=== PATIENT | female | born 1950 | race Hispanic/Latino ===

== ENCOUNTER → 2023-08-13 | Outpatient (CLI) | payer OTHER | END | disposition home or self-care (01) | LOC: RAH 13:37 | PROVIDERS: ATTEND Internal Medicine Medical Oncology | DX: I34.81 Nonrheumatic mitral (valve) annulus calcification (principal); Z79.899 Other long term (current) drug therapy | CPT/HCPCS: 93306 ==

== ENCOUNTER → 2023-11-11 | Outpatient (CLI) | payer OTHER | END | disposition home or self-care (01) | LOC: RAH 14:35 | PROVIDERS: ATTEND Family Medicine | DX: I34.81 Nonrheumatic mitral (valve) annulus calcification (principal); I51.7 Cardiomegaly; I51.89 Other ill-defined heart diseases; R55 Syncope and collapse | CPT/HCPCS: 93306 ==

== ENCOUNTER → 2024-05-01 | Outpatient (CLI) | payer OTHER ==
--- NOTE | 2024-05-01 21:17 | HMCSR ---
APPROVED REPORT EXAM: Two-dimensional and M-mode echocardiogram with Doppler and color Doppler. INDICATION ICD: Z79.899, C50.11 2D Dimensions RVDd3.1 cmLVEF(%)59.8 (>50%)LVED Vol(simp.)103.0 mL IVSd0.9 (0.7-1.1cm)FS(%)32 %LVES Vol(simp.)47.6 mL LVDd4.7 (3.8-5.6cm)LA (2D)4.1 (1.6-4.0cm)LVEF(%, simp.)54 % PWd1.2 (0.7-1.1cm)Ao Root(2D)3.6 (2.0-3.7cm)LA ESV INDEX (4CH)38.40 mL/m2 IVSs1.4 cmLVOT diam2.2 (1.8-2.4cm)LA ESV INDEX (2CH)38.90 mL/m2 LVDs3.2 (2.5-4.0cm)LA ESV INDEX (BP)39.10 mL/m2 PWs1.7 cm M-Mode Dimensions EPSS0.4 cm LA (MM)5.0 (1.6-4.0cm) Ao Root(MM)3.5 (2.0-3.7cm) Aortic Valve AoV VTI0.2 mAo Mean GR3.0 mmHgLVOT VTI0.21 m SRIRAM (VMAX)3.3 cm2AVA (VTI) 3.3 cm2 Mitral Valve MV E Vmax83.4 cm/sDECEL Nere051 ms MV A Vmax82.0 cm/sP 1/2 T85 ms E/A ratio1.0MVA (PHT)2.6 cm2 TDI E/E' Cdmdam25.2E/E' Hlmxqiz67.1 Medial E' Peak V3.60 cm/sLateral E' Peak V4.60 cm/s Pulmonary Valve PV VTI0.20 mPV Mean GR2 mmHg Tricuspid Valve TR Vmax1.9 m/sRAP (EST) 8 yeZaQTUR28.4 mmHg TR Peak GR14.4 mmHg Left Ventricle The left ventricle is normal size. There is normal left ventricular wall thickness. The LVEF is 55-60 %. Stage II, diastolic dysfunction. Right Ventricle The right ventricle is normal size. The right ventricular systolic function is normal. Atria The left atrium is mildly dilated. The right atrium size is normal. Aortic Valve The aortic valve is normal in structure. No aortic regurgitation is present. There is no aortic valvu lar stenosis. Mitral Valve Mild posterior annular calcification. Mitral valve leaflets open well. There is no evidence of signif icant mitral regurgitation. There is no mitral valve stenosis. Tricuspid Valve The tricuspid valve is normal in structure. There is trace of tricuspid valve regurgitation noted. Pulmonic Valve The pulmonary valve is normal in structure. There is no pulmonic valvular regurgitation. Great Vessels The aortic root is normal in size. IVC is not well visualized. Pericardium There is no pericardial effusion. Other Information Quality : Adequate Conclusion The left ventricle is normal size. The LVEF is 55-60%. Stage II, diastolic dysfunction. The right ventricle is normal size. The right ventricular systolic function is normal. The left atrium is mildly dilated. The right atrium size is normal. No valvular pathology. There is no pericardial effusion.
== END | disposition home or self-care (01) ==
LOC: RAH 12:48
PROVIDERS: ATTEND Internal Medicine Medical Oncology
DX: Z51.11 Encounter for antineoplastic chemotherapy (principal); C50.011 Malignant neoplasm of nipple and areola, right female breast; Z79.899 Other long term (current) drug therapy
CPT/HCPCS: 93306

== ENCOUNTER → 2024-08-07 | Outpatient (CLI) | payer OTHER ==
--- NOTE | 2024-08-07 14:25 | HMCSR ---
APPROVED REPORT EXAM: Two-dimensional and M-mode echocardiogram with Doppler and color Doppler. INDICATION ICD: Z79.899 Other intermediate project manager (current) drug therapy 2D Dimensions RVDd3.4 cmLVEF(%)82.1 (>50%)LVED Vol(simp.)131.0 mL IVSd1.1 (0.7-1.1cm)FS(%)51 %LVES Vol(simp.)50.0 mL LVDd4.7 (3.8-5.6cm)LA (2D)4.7 (1.6-4.0cm)LVEF(%, simp.)62 % PWd1.3 (0.7-1.1cm)Ao Root(2D)3.3 (2.0-3.7cm)LA ESV INDEX (BP)61.36 mL/m2 LVDs2.3 (2.5-4.0cm)LVOT diam2.1 (1.8-2.4cm) IVC diam1.8 cm Deformation Strain Apical 4-18.8 % Apical 2-19.1 % Apical 3-15.7 % Global Strain-17.9 % M-Mode Dimensions EPSS0.4 cm LA (MM)4.9 (1.6-4.0cm) Ao Root(MM)3.5 (2.0-3.7cm) Aortic Valve AoV Vmax1.5 m/Yuly Peak GR8.4 mmHgLVOT Vmax1.1 m/s AoV VTI0.3 mAo Mean GR4.3 mmHgLVOT VTI0.28 m SRIRAM (VMAX)3.02 cm2AVA (VTI) 3.0 cm2 Mitral Valve MV E Npte561.3 cm/sDECEL Rpoe003 ms MV A Aznv806.1 cm/sP 1/2 T65 ms E/A ratio1.1MVA (PHT)3.4 cm2 TDI E/E' Nmbyab53.3E/E' Zmgssvv87.0 Medial E' Peak V5.29 cm/sLateral E' Peak V6.48 cm/s Tricuspid Valve TR Vmax2.4 m/sRVSP22.7 mmHg TR Peak GR22.7 mmHg Left Ventricle The left ventricle is normal size. Global strain of -18%. There is normal left ventricular wall thick ness. LVEF is 60-65%. Stage II diastolic dysfunction. Right Ventricle The right ventricle is normal size. The right ventricular systolic function is normal. Atria The left atrium is severely dilated. The right atrium size is normal. Aortic Valve The aortic valve is normal in structure. No aortic regurgitation is present. There is no aortic valvu lar stenosis. Mitral Valve The mitral valve is normal in structure. Mild mitral annular calcification present. Mitral regurgitat ion is trace. There is no mitral valve stenosis. Tricuspid Valve The tricuspid valve is normal in structure. There is no tricuspid valve regurgitation noted. Pulmonic Valve The pulmonary valve is normal in structure. There is no pulmonic valvular regurgitation. Great Vessels The aortic root is normal in size. The IVC is normal in size and collapses >50% with inspiration. Pericardium There is no pericardial effusion. Conclusion LVEF is 60-65%. Global strain of -18%.
== END | disposition home or self-care (01) ==
LOC: RAH 13:34
PROVIDERS: ATTEND Internal Medicine Medical Oncology
DX: I34.0 Nonrheumatic mitral (valve) insufficiency (principal); C50.011 Malignant neoplasm of nipple and areola, right female breast; Z79.899 Other long term (current) drug therapy
CPT/HCPCS: 93306; 93356